=== PATIENT | male | born 1970 | race Caucasian/White ===

== ENCOUNTER → 2019-07-02 | Outpatient (CLI) | payer OTHER ==
[2019-07-02 08:12] LABS: ABSOLUTE BASOPHILS # (AUTO) 0.1 10^3/uL (0.0-0.2); ABSOLUTE EOSINOPHILS # (AUTO) 0.3 10^3/uL (0.0-0.6); ABSOLUTE LYMPHOCYTES (AUTO) 1.7 10^3/uL (0.5-4.7); ABSOLUTE MONOCYTES (AUTO) 0.6 10^3/uL (0.1-1.4); ABSOLUTE NEUT (AUTO) 3.5 10^3/uL (1.7-8.2); EOSINOPHILS % (AUTO) 4.4 % (0-6); HEMATOCRIT 47.7 % (37.9-51.0); HEMOGLOBIN 16.2 g/dL (13.5-17.0); LYMPHOCYTES % (AUTO) 28.2 % (13-45); MEAN CORPUSCULAR HEMOGLOBIN 31.5 pg (27.0-33.4); MEAN CORPUSCULAR VOLUME 93 fl (80-97); MONOCYTES % (AUTO) 9.4 % (3-13); PLATELET COUNT 333 10^3/uL (150-450); RED BLOOD COUNT 5.16 10^6/uL (4.35-5.55); RED CELL DISTRIBUTION WIDTH 14.1 % (11.5-14.0); TOTAL CELLS COUNTED % (AUTO) 100 %; WHITE BLOOD COUNT 6.2 10^3/uL (4.0-10.5)
[2019-07-02 08:32] LABS: ALBUMIN 3.9 g/dL (3.5-5.0); ALKALINE PHOSPHATASE 96 U/L (38-126); ANION GAP 7 (5-19); ASPARTATE AMINO TRANSFERASE 23 U/L (17-59); BILIRUBIN,DIRECT 0.1 mg/dL (0.0-0.4); BILIRUBIN,TOTAL 0.4 mg/dL (0.2-1.3); BLOOD UREA NITROGEN 14 mg/dL (7-20); CALCIUM 9.3 mg/dL (8.4-10.2); CARBON DIOXIDE 26 mmol/L (22-30); CHLORIDE 107 mmol/L (98-107); CHOLESTEROL 250.62 mg/dL (0-200); GLUCOSE 102 mg/dL (75-110); POTASSIUM 4.8 mmol/L (3.6-5.0); TOTAL PROTEIN 6.9 g/dL (6.3-8.2); TRIGLYCERIDES 227 mg/dL (<150); URIC ACID 4.2 mg/dL (3.5-8.5)
[2019-07-02 08:42] LABS: DIRECT LDL 191 mg/dL (<100)
[2019-07-02 08:51] LABS: VLDL CHOLESTEROL 45.4 mg/dL (10-31)
--- NOTE | 2019-07-02 09:51 | RADIOLOGY REPORT (SQ) ---
EXAM DESCRIPTION: LUMBAR SPINE 2 VIEWS COMPLETED DATE/TIME: 07/02/2019 7:50 am REASON FOR STUDY: RADICULOPATHY, LUMBAR REGION,LBP Z00.00 ENCNTR FOR GENERAL ADULT MEDICAL EXAM W/O ABNORMAL FI M54.5 LOW BACK PAIN M54.16 RADICULOPATHY, LUMBAR REGION COMPARISON: None. NUMBER OF VIEWS: Two views. TECHNIQUE: AP and lateral radiographic images acquired of the lumbar spine. LIMITATIONS: None. FINDINGS: MINERALIZATION: Normal. SEGMENTATION: Normal. No transitional anatomy. ALIGNMENT: Normal. VERTEBRAE: Maintained height. No fracture or worrisome bone lesion. DISCS: Moderate to moderate severe narrowing at L4- 5 and L5-S1. Mildly prominent anterior osteophy christi mid lower lumbar spine. Posterior osteophytes encroach on the foramina at L3-4 and L4-L5. Mild degenerative changes involving the visualized lower thoracic spine. POSTERIOR ELEMENTS: Moderate facet arthrosis lower lumbar spine more so on the right. Pedicles are intact. No pars defect or posterior arch defects. HARDWARE: None in the spine. PARASPINAL SOFT TISSUES: Normal. PELVIS: Intact as visualized. No fractures or worrisome bone lesions. SI joints intact. OTHER: No other significant finding. IMPRESSION: 1. Degenerative lumbar spondylosis and disc disease lower lumbar spine as above. 2. No acute osseous findings. TECHNICAL DOCUMENTATION: JOB ID: [id number] [employer]- All Rights Reserved Reading location - IP/workstation name: [email or web address]
--- NOTE | 2019-07-02 09:54 | RADIOLOGY REPORT (SQ) ---
EXAM DESCRIPTION: SACRUM AND COCCYX COMPLETED DATE/TIME: 07/02/2019 7:50 am REASON FOR STUDY: RADICULOPATHY, LUMBAR REGION,LBP Z00.00 ENCNTR FOR GENERAL ADULT MEDICAL EXAM W/O ABNORMAL FI M54.5 LOW BACK PAIN M54.16 RADICULOPATHY, LUMBAR REGION COMPARISON: None. NUMBER OF VIEWS: Three views. TECHNIQUE: AP, lateral, and tilt views of the sacrum and coccyx. LIMITATIONS: None. FINDINGS: MINERALIZATION: Normal. BONES: No acute fracture or dislocation. No worrisome bone lesions. SOFT TISSUES: No soft tissue swelling. No foreign body. OTHER: No other significant finding. IMPRESSION: 1. No acute osseous findings. TECHNICAL DOCUMENTATION: JOB ID: [id number] [employer]- All Rights Reserved Reading location - IP/workstation name: [email or web address]
== END ==
LOC: CCC 07:17
DX: Z00.00 Encounter for general adult medical examination without abnormal findings (principal); M54.5 Low back pain; M54.16 Radiculopathy, lumbar region
CPT/HCPCS: 36415; 72100; 72220; 80053; 80061; 83036; 84443; 84550; 85025

== ENCOUNTER → 2019-07-31 | Outpatient (CLI) | payer OTHER ==
--- NOTE | 2019-07-31 12:05 | RADIOLOGY REPORT (SQ) ---
EXAM DESCRIPTION: HAND LEFT 3 VIEWS COMPLETED DATE/TIME: 07/31/2019 11:38 am REASON FOR STUDY: NUMBNESS AND PAIN IN BOTH HANDS M79.642 PAIN IN LEFT HAND M79.641 PAIN IN RIGHT HAND M79.2 NEURALGIA AND NEURITIS, UNSPECIFIED COMPARISON: None. EXAM PARAMETERS: NUMBER OF VIEWS: Three views. TECHNIQUE: AP, lateral and oblique radiographic images acquired of the left hand. LIMITATIONS: None. FINDINGS: MINERALIZATION: Normal. BONES: No acute fracture or dislocation. No worrisome bone lesions. No significant osteophytes. JOINTS: No erosions. No karis-articular osteopenia. No chondrocalcinosis. SOFT TISSUES: No swelling. No calcifications. OTHER: No other significant finding. IMPRESSION: NEGATIVE STUDY OF THE LEFT HAND. NO EXPLANATION FOR PAIN. TECHNICAL DOCUMENTATION: JOB ID: [id number] [employer]- All Rights Reserved Reading location - IP/workstation name: [email or web address]
--- NOTE | 2019-07-31 12:05 | RADIOLOGY REPORT (SQ) ---
EXAM DESCRIPTION: HAND RIGHT 3 VIEWS COMPLETED DATE/TIME: 07/31/2019 11:38 am REASON FOR STUDY: NUMBNESS AND PAIN IN BOTH HANDS M79.642 PAIN IN LEFT HAND M79.641 PAIN IN RIGHT HAND M79.2 NEURALGIA AND NEURITIS, UNSPECIFIED COMPARISON: None. EXAM PARAMETERS: NUMBER OF VIEWS: Three views. TECHNIQUE: AP, lateral and oblique radiographic images acquired of the right hand. LIMITATIONS: None. FINDINGS: MINERALIZATION: Normal. BONES: No acute fracture or dislocation. No worrisome bone lesions. JOINTS: No effusions. SOFT TISSUES: No soft tissue swelling. No foreign body. OTHER: No other significant finding. IMPRESSION: NEGATIVE STUDY OF THE RIGHT HAND. NO RADIOGRAPHIC EVIDENCE OF ACUTE INJURY. TECHNICAL DOCUMENTATION: JOB ID: [id number] [employer]- All Rights Reserved Reading location - IP/workstation name: [email or web address]
== END ==
LOC: CCC 11:23
DX: M79.642 Pain in left hand (principal); M79.641 Pain in right hand; M79.2 Neuralgia and neuritis, unspecified

== ENCOUNTER → 2019-10-02 | Outpatient (CLI) | payer OTHER ==
--- NOTE | 2019-10-03 08:58 | RADIOLOGY REPORT (SQ) ---
EXAM DESCRIPTION: MRI CERVICAL SPINE WITHOUT COMPLETED DATE/TIME: 10/02/2019 11:27 am REASON FOR STUDY: UNSPEC DISPLACED FX OF 2ND CERVICAL VERTEBRA (S12.100A), CERVICAL RADICULOP S12.10 0A UNSP DISP FX OF SECOND CERVICAL VERTEBRA, INIT FOR COMPARISON: None. TECHNIQUE: Sagittal and Axial imaging includes T1, T2, STIR and gradient echo sequences. LIMITATIONS: None. FINDINGS: ALIGNMENT: Normal. VERTEBRAE: Intact. BONE MARROW: Normal. No marrow replacement or reactive changes. DISCS: Normal. No significant abnormal signal or loss of height. HARDWARE: Hardware extends from C4 through C7. CORD AND BASE OF BRAIN: Normal in size and signal intensity. SOFT TISSUES: No soft tissue masses. C1-C2: No significant spinal stenosis. C2-C3: No significant spinal stenosis or exit foraminal stenosis. C3-C4: There is annular disc bulging. No significant central stenosis. There are prominent disc- os teophyte complexes latter resulting in bilateral foraminal stenosis. C4-C5: Postsurgical changes. Mild asymmetric narrowing of the right neural foramina. No central klaus nosis. C5-C6: Postsurgical changes with effacement anterior thecal sac. No significant foraminal narrowing. C6-C7: Prominent left lateral disc/ osteophyte complex. This results in asymmetric narrowing of the left neural foramina. Mild central stenosis at this level. There is loss of signal due to postsurgi lexie changes. C7-T1: Central osteophyte. No foraminal narrowing or high-grade stenosis. UPPER THORACIC: Incompletely imaged. No significant spinal stenosis or exit foraminal stenosis. OTHER: No other significant finding. IMPRESSION: 1. Postsurgical changes prior anterior fusion from C4 through C7. 2. At C6-C7 there is a prominent left lateral disc/ osteophyte complex. This results in asymmetric narrowing of the left neural foramina. There is mild central stenosis at this level as well. 3. Annular disc bulging at C3-4 with prominent lateral osteophytes results in bilateral foraminal st enosis. 4. Mild asymmetric narrowing of the right neural foramina at C4-5 secondary to hyperostosis. TECHNICAL DOCUMENTATION: JOB ID: [id number] 2010 [employer]- All Rights Reserved Reading location - IP/workstation name: [email or web address]
== END ==
LOC: RAD 10:32
PROVIDERS: ATTEND Family Medicine
DX: S12.100A Unspecified displaced fracture of second cervical vertebra, initial encounter for closed fracture (principal); M54.12 Radiculopathy, cervical region; X58.XXXA Exposure to other specified factors, initial encounter
CPT/HCPCS: 72141

== ENCOUNTER 2020-01-24 21:31 | Emergency (ER) | payer OTHER ==
[2020-01-24 21:38] VITALS: BP 178/122
[2020-01-24] MEDS ORDERED: METHYLPREDNISOLONE ACETATE INJ 40 MG/1 ML ML IM ONE (21:50)
[2020-01-24] MEDS ORDERED: DEXAMETHASONE SOD PHOS INJ 10 MG/1 ML VIAL IM ONE (21:50)
[2020-01-24] MEDS ORDERED: METHOCARBAMOL 750 MG TABLET PO ONE (21:51)
--- NOTE | 2020-01-24 21:56 | ER Document Report ---
HPI - HPI Patient complains to provider of: Back pain Time Seen by Provider: 01/24/20 21:50 Onset: Last week - This a 49-year-old male whose had intermittent back pain to the left lateral part of his back intermittently for about 3 months more severe over the last 2 days. He has not had any recent injury no fall no trauma. Onset/Duration: Intermittent Pain Level: 4 Associated Symptoms: None Exacerbated by: Denies Relieved by: Denies Similar symptoms previously: Yes Recently seen / treated by doctor: No Past Medical History - General Information source: Patient - Social History Smoking Status: Current Every Day Smoker Cigarette use (# per day): Yes - 20 Chew tobacco use (# tins/day): No Smoking Education Provided: No Frequency of alcohol use: None Drug Abuse: None Family History: None Patient has homicidal ideation: No Vertical Provider Document - CONSTITUTIONAL Agree With Documented VS: Yes - INFECTION CONTROL TRAVEL OUTSIDE OF THE [place] IN LAST 30 DAYS: No - HEENT HEENT: Atraumatic, Conjuctival Injection, Normocephalic, PERRLA - NECK Neck: Normal Inspection, Supple - RESPIRATORY Respiratory: Breath Sounds Normal, No Respiratory Distress - CARDIOVASCULAR Cardiovascular: Regular Rate, Regular Rhythm - REPRODUCTIVE Male Genitalia: Normal Inspection - BACK Back: Normal Inspection Notes: No numbness no tingling no loss of bowel bladder function no saddle anesthesia ambulatory with a rhythmic and purposeful gait. - MUSCULOSKELETAL/EXTREMETIES Musculoskeletal/Extremeties: [facility] Course - Re-evaluation Re-evalutation: 01/24/20 21:53 No numbness no tingling no loss of bowel bladder function no saddle anesthesia ambulatory with a rhythmic and purposeful gait. No trauma patient states this is been happening intermittently over the last several months has a history of sciatica. - Vital Signs Vital signs: Temp Pulse Resp BP Pulse Ox 97.5 F 93 22 H 178/122 H 97 01/24/20 21:42 01/24/20 21:35 01/24/20 21:35 01/24/20 21:35 01/24/20 21:35 Discharge - Discharge Clinical Impression: Sciatica Qualifiers: Laterality: left Qualified Code(s): M54.32 - Sciatica, left side Disposition: HOME, SELF-CARE Instructions: Sciatica ([facility]) Additional Instructions: Sciatica Your symptoms suggest "sciatica." The pain of sciatica typically radiates down the leg. Numbness in the foot or calf may also occur. Sciatica is caused by irritation of the sciatic nerve or its branches. The irritation can be due to a herniated disk in the spine, swelling and inflammation in the muscles surrounding the sciatic nerve, or direct injury of the nerve itself. Most cases of sciatica will resolve with medical treatment. Bed rest is usually recommended initially. Surgery is only necessary when the condition will not improve with rest and antiinflammatory medication. Muscle relaxers are often given if muscle soreness is present. A CAT scan of the back may be performed if a herniated disk is suspected. Re-examination is necessary if you develop increasing numbness, localized weakness in the foot or ankle, or if the pain does not respond to rest. Prescriptions: Prednisone [Deltasone 20 mg Tablet] 3 tab PO DAILY 5 Days tablet Methocarbamol [Robaxin 750 mg Tablet] 750 mg PO ASDIR PRN #40 tablet PRN Reason: Referrals: ALINA GONSALVES MD [Primary Care Provider] - Follow up as needed
== END 2020-01-24 22:16 | disposition home or self-care (01) ==
LOC: ER 21:31
DX: M54.32 Sciatica, left side (principal); M54.9 Dorsalgia, unspecified; F17.210 Nicotine dependence, cigarettes, uncomplicated
CPT/HCPCS: 99283; 96372; J3490; J1030; J1100

== ENCOUNTER 2020-01-28 17:57 | Emergency (ER) | payer OTHER ==
--- NOTE | 2020-01-28 18:54 | ER Document Report ---
ED Medical Screen (RME) - General Chief Complaint: Back Pain Stated Complaint: LEFT SIDE BACK/LEG PAIN Time Seen by Provider: 01/28/20 18:41 Primary Care Provider: ALINA GONSALVES MD [Primary Care Provider] - Follow up as needed Mode of Arrival: Ambulatory Information source: Patient Notes: 49-year-old male presented to ED for sciatica pain that is become worse since he was seen here on . He states he followed up with his primary care doctor and they wanted to know why he did get an x-ray or an MRI. He states he then followed up with pain management who told him that he should return to the ED to see if he could get his MRI. They said they would work on trying to get once set up. He states he had low back pain for few months but the sciatica was just diagnosed on . He does have a history of chronic pain in his neck upper back and right shoulder. He has had a cervical fusion carpal tunnel surgery torn ligament repair in his elbow and her shoulder surgery. He states he does smoke a pack and a half a day. He is alert oriented respirations regular nonlabored he is in pain and walking with a stiff leg on his left side. He states he does not have any loss control of bowel bladder, saddle anesthesia, loss of control to the lower extremities. He states it is very painful to the left leg. I have greeted and performed a rapid initial assessment of this patient. A comprehensive ED assessment and evaluation of the patient, analysis of test results and completion of medical decision making process will be conducted by an additional ED providers. - Related Data Allergies/Adverse Reactions: No Known Allergies Allergy (Unverified 01/24/20 21:41) Past Medical History - Social History Frequency of alcohol use: None Drug Abuse: None Physical Exam - Vital signs Vitals: Temp Pulse Resp BP Pulse Ox 98.6 F 94 20 185/107 H 96 01/28/20 18:05 01/28/20 18:05 01/28/20 18:05 01/28/20 18:05 01/28/20 18:05 Course - Vital Signs Vital signs: Temp Pulse Resp BP Pulse Ox 98.6 F 94 20 185/107 H 96 01/28/20 18:41 01/28/20 18:05 01/28/20 18:05 01/28/20 18:05 01/28/20 18:05 Doctor's Discharge - Discharge Referrals: ALINA GONSALVES MD [Primary Care Provider] - Follow up as needed
--- NOTE | 2020-01-28 19:23 | RADIOLOGY REPORT (SQ) ---
EXAM DESCRIPTION: L SPINE WHOLE IMAGES COMPLETED DATE/TIME: 01/28/2020 7:10 pm REASON FOR STUDY: Low back pain sciatica to the left COMPARISON: 07/02/2019 NUMBER OF VIEWS: Five views including obliques. TECHNIQUE: AP, lateral, oblique, and sacral radiographic images acquired of the lumbar spine. LIMITATIONS: None. FINDINGS: MINERALIZATION: Normal. SEGMENTATION: Normal. No transitional anatomy. ALIGNMENT: Normal. VERTEBRAE: Maintained height. No fracture or worrisome bone lesion. DISCS: Multilevel disc space narrowing, more so at L4-5 and L5-S1, unchanged finding. Mildly promin ent anterior osteophytes mid-lower lumbar spine. Small posterior osteophytes encroach on the foramin a at L3-4 L4-5 and L5-S1. POSTERIOR ELEMENTS: Facet arthrosis lower lumbar spine, more so on the right. Pedicles are intact. No pars defect or posterior arch defects. HARDWARE: None in the spine. PARASPINAL SOFT TISSUES: Normal. PELVIS: Intact as visualized. No fractures or worrisome bone lesions. SI joints intact. OTHER: No other significant finding. IMPRESSION: 1. No significant interval changes since the prior examination dated 07/02/2019. Degen erative lumbar disc spondylosis and disc disease lower lumbar spine. 2. No acute osseous findings. TECHNICAL DOCUMENTATION: JOB ID: [id number] 2010 [employer]- All Rights Reserved Reading location - IP/workstation name: [email or web address]
[2020-01-28 19:25] LABS: HEMATOCRIT 44.9 % (37.9-51.0); HEMOGLOBIN 15.1 g/dL (13.5-17.0); MEAN CORPUSCULAR HEMOGLOBIN 31.2 pg (27.0-33.4); MEAN CORPUSCULAR HGB CONC 33.5 g/dL (32.0-36.0); MEAN CORPUSCULAR VOLUME 93 fl (80-97); PLATELET COUNT 362 10^3/uL (150-450); RED BLOOD COUNT 4.84 10^6/uL (4.35-5.55); WHITE BLOOD COUNT 18.4 10^3/uL (4.0-10.5)
[2020-01-28 19:32] LABS: ALBUMIN 4.5 g/dL (3.5-5.0); ALKALINE PHOSPHATASE 76 U/L (38-126); APPEARANCE,URINE SLIGHTLY-CLOUDY; ASPARTATE AMINO TRANSFERASE 31 U/L (17-59); BILIRUBIN,DIRECT 0.1 mg/dL (0.0-0.4); BILIRUBIN,TOTAL 0.4 mg/dL (0.2-1.3); BILIRUBIN,URINE SMALL (NEGATIVE); BLOOD UREA NITROGEN 27 mg/dL (7-20); CALCIUM 9.6 mg/dL (8.4-10.2); COLOR,URINE AMBER; GLUCOSE 112 mg/dL (75-110); GLUCOSE, URINE NEGATIVE (NEGATIVE); KETONES,URINE TRACE mg/dL (NEGATIVE); LEUKOCYTE ESTERASE,URINE NEGATIVE (NEGATIVE); NITRITE,URINE NEGATIVE (NEGATIVE); PROTEIN,URINE 30 mg/dL (NEGATIVE); TOTAL PROTEIN 7.5 g/dL (6.3-8.2); URINE SPECIFIC GRAVITY 1.038
[2020-01-28 19:38] LABS: CARBON DIOXIDE 27 mmol/L (22-30); CHLORIDE 105 mmol/L (98-107)
[2020-01-28 19:41] LABS: ANION GAP 4 (5-19)
[2020-01-28 19:55] LABS: ABSOLUTE LYMPHOCYTES# (MANUAL) 4.4 10^3/uL (0.5-4.7); ABSOLUTE MONOCYTES # (MANUAL) 1.5 10^3/uL (0.1-1.4); BASOPHILS % (MANUAL) 0 % (0-2); EOSINOPHILS % (MANUAL) 0 % (0-6); LYMPHOCYTES % (MANUAL) 23 % (13-45); METAMYELOCYTES % (MANUAL) 2 % (0-1); MONOCYTES % (MANUAL) 8 % (3-13); SEGMENTED NEUTROPHILS % (MAN) 66 % (42-78); TOTAL CELLS COUNTED 100
[2020-01-28 19:56] LABS: ANISOCYTOSIS SLIGHT; OVALOCYTES SLIGHT; PLATELET COMMENT ADEQUATE; POIKILOCYTOSIS SLIGHT
[2020-01-28] MEDS ORDERED: HYDROCODONE/ACETAMINOPHEN 5-325 MG TABLET PO ONE (20:22)
[2020-01-28] MEDS ORDERED: HYDROMORPHONE HCL INJ/PF 2 MG/ML AMPULE IM ONE (21:22)
[2020-01-28] MEDS ORDERED: IBUPROFEN 600 MG TABLET PO ONE (21:22)
[2020-01-28] MEDS ORDERED: CYCLOBENZAPRINE HCL 10 MG TABLET PO ONE (21:22)
--- NOTE | 2020-01-28 21:25 | ER Document Report ---
ED General - General Chief Complaint: Back Pain Stated Complaint: LEFT SIDE BACK/LEG PAIN Time Seen by Provider: 01/28/20 18:41 Primary Care Provider: ALINA GONSALVES MD [Primary Care Provider] - Follow up as needed Mode of Arrival: Ambulatory Notes: 49-year-old male with a history of chronic pain multiple neck surgeries and known spine arthritis, on pain management contract with a pain management clinic presents with back pain left-sided lower rating down the left buttock no lower with left leg paresthesias in his small and middle toe on the left. No loss of bowel or bladder control no saddle anesthesia no injection drug use. Injected testosterone with clean needles and alcohol last 7 months ago previously was on testosterone therapy but denies illicit drug use. He has no rash no history of shingles, no weight loss and no fever. - Related Data Allergies/Adverse Reactions: No Known Allergies Allergy (Unverified 01/24/20 21:41) Past Medical History - General Information source: Patient - Social History Smoking Status: Current Every Day Smoker Frequency of alcohol use: None Drug Abuse: None Family History: None Patient has homicidal ideation: No Review of Systems - Review of Systems Notes: REVIEW OF SYSTEMS GEN: Denies fever, chills, weight loss ENT: Denies sore throat, nasal discharge, ear pain EYES: Denies blurry vision, eye pain, discharge CV: Denies chest pain, palpitations, edema RESP: Denies cough, shortness of breath, wheezing GI: Denies abdominal pain, nausea, vomiting, diarrhea MSK: Back pain SKIN: Denies rash, skin lesions LYMPH: Denies swollen glands/lymph nodes NEURO: Denies headache, focal weakness or numbness, dizziness PSYCH: Denies depression, suicidal or homicidal ideation PHYSICAL EXAMINATION General: No acute distress, well-nourished Head: Atraumatic, normocephalic ENT: Mouth normal, oropharynx moist, no exudates or tonsillar enlargement Eyes: Conjunctiva normal, pupils equal, lids normal Neck: No JVD, supple, no guarding CVS: Normal rate, regular rhythm, no murmurs Resp: No resp distress, equal and normal breath sounds bilaterally GI: Nondistended, soft, no tenderness to palpation, no rebound or guarding Ext: No deformities, no edema, normal range of motion in upper and lower ext Back: No CVA or midline TTP. Left lumbar tenderness and spasm. Skin: No rash, warm Lymphatic: No lymphadeopathy noted Neuro: Awake, alert. Face symmetric. GCS 15. 5 and 5 strength in both lower extremities normal sensation throughout except mild paresthesia on the left side of the left foot, normal patellar and Achilles reflexes bilaterally. Patient able to stand and walk although antalgic. Physical Exam - Vital signs Vitals: Temp Pulse Resp BP Pulse Ox 98.6 F 94 20 185/107 H 96 01/28/20 18:05 01/28/20 18:05 01/28/20 18:05 01/28/20 18:05 01/28/20 18:05 Course - Re-evaluation Re-evalutation: 01/28/20 21:23 Acute on chronic back pain with no risk factors for spinal epidural abscess. The patient has normal neurologic exam with no clinical history consistent with cauda equina, has had an x-ray showing some degenerative change, and does not require MRI at this time. I will give him a dose of Dilaudid and Flexeril with ibuprofen for radiculopathy, and will discharge him on a steroid pack. For some reason he obtained labs at triage he does have a mild white count, however I do not think that this alone mandates MRI. He has some nonspecific abnormal urine testing but no evidence of kidney stone, and his blood tests otherwise are normal. 01/29/20 00:46 Patient received pain medicine. [place] better. Ambulated from ED. Discharged follow-up with pain management. I have discussed with the patient there likely diagnosis, aftercare plan, follow-up plans and my usual and customary return precautions. They verbalized understanding of this. - Vital Signs Vital signs: Temp Pulse Resp BP Pulse Ox 97.5 F 80 18 170/103 H 96 01/28/20 21:36 01/28/20 21:36 01/28/20 21:36 01/28/20 21:36 01/28/20 21:36 - Laboratory Result Diagrams: 01/28/20 19:00 01/28/20 19:00 Laboratory results interpreted by me: 01/28/20 01/28/20 01/28/20 19:00 19:00 19:00 WBC 18.4 H RDW 15.0 H Metamyelocytes % 2 H Abs Neuts (Manual) 12.5 H Abs Monocytes (Manual) 1.5 H Sodium 136.0 L Anion Gap 4 L BUN 27 H Glucose 112 H Urine Protein 30 H Urine Ketones TRACE H Urine Bilirubin SMALL H Urine Urobilinogen 2.0 H Urine Ascorbic Acid 20 H Discharge - Discharge Clinical Impression: Acute exacerbation of chronic low back pain Condition: Good Disposition: HOME, SELF-CARE Instructions: Ice Packs ([facility]), Low Back Pain ([facility]), Oral Narcotic Medication ([facility]), Warm Packs ([facility]) Additional Instructions: Though you may need an MRI in the future is not necessary tonight in the emergency room. If you have trouble controlling your bowel or bladder, have any numbness or tingling in your scrotum or anus, or develop a fever please return to the emergency room as this may be sign of a more serious condition. Until then please follow-up with your pain management office and you can, purchase some cech-hga-xwkswfu lidocaine patches, begin the steroids that I have prescribed, and discussed with pain management regarding increasing or changing your baseline pain medicine dosing. Prescriptions: Methylprednisolone [Medrol Dosepack (4 mg/Tab) 21 Tab/Dosepak] 4 mg PO ASDIR PRN #21 tab.ds.pk PRN Reason: Referrals: ALINA GONSALVES MD [Primary Care Provider] - Follow up as needed
[2020-01-28 21:39] VITALS: BP 170/103
== END 2020-01-28 21:58 | disposition home or self-care (01) ==
LOC: ER 17:57
DX: M54.5 Low back pain (principal); M54.9 Dorsalgia, unspecified; R20.0 Anesthesia of skin; F17.200 Nicotine dependence, unspecified, uncomplicated; G89.29 Other chronic pain
CPT/HCPCS: 99283; 96372; 36415; 85025; 80053; 81001; 72110; J1170

== ENCOUNTER → 2020-02-01 | Outpatient (CLI) | payer OTHER ==
--- NOTE | 2020-02-01 14:05 | RADIOLOGY REPORT (SQ) ---
EXAM DESCRIPTION: MRI LUMBAR SPINE WITHOUT IMAGES COMPLETED DATE/TIME: 02/01/2020 11:53 am REASON FOR STUDY: LUMBAR RADICULOPATHY (M54.16) M54.16 RADICULOPATHY, LUMBAR REGION COMPARISON: AP, lateral and oblique views of the lumbar spine from 01/28/2020. TECHNIQUE: Sagittal and Axial imaging includes T1, T2, STIR and gradient echo sequences. Coronal T2/ HASTE imaging. LIMITATIONS: None. FINDINGS: VISUALIZED UPPER ABDOMEN: Limited evaluation. No acute or suspicious findings suggested. SEGMENTATION: There are 5 lumbar-type vertebral bodies. There is no transitional segment at the lumb osacral junction. ALIGNMENT: Anatomic. VERTEBRAE: The lumbar vertebral body heights are preserved. There is no fracture. BONE MARROW: Normal. DISC SIGNAL: The L3-L4, L4-L5 and L5-S1 intervertebral discs are narrowed and desiccated. POSTERIOR ELEMENTS: Intact. HARDWARE: None in the spine. CORD AND CONUS: The conus medullaris terminates at the level of T12-L1 and it is normal in caliber an d signal intensity. SOFT TISSUES: No abdominal aortic aneurysm or retroperitoneal adenopathy. L1-L2: No spinal or foraminal stenosis. L2-L3: No spinal or foraminal stenosis. L3-L4: Broad-based disc bulge eccentric to the left that effaces the ventral epidural fat without mas s effect on the thecal sac, encroaches upon the inferior aspect of the neuroforamina, and abuts the e xtraforaminal left L3 nerve root ; and degeneration of the facet joints. These findings result in mi ld bilateral foraminal stenosis. L4-L5: Broad-based disc protrusion that flattens the ventral aspect of the thecal sac and encroaches upon the inferior aspect of the neuroforamina without mass effect on the L4 nerve roots ; hypertrophy of the ligamentum flavum ; and degeneration of the facet joints. These findings result in mild to m oderate stenosis of the spinal canal and mild to moderate bilateral foraminal stenosis L5-S1: Disc extrusion eccentric to the left that abuts the intrathecal left S1 nerve root (in the lat eral recess) ; and degeneration of the facet joints. These findings result in mild to moderate bilat eral foraminal stenosis. LOWER THORACIC: At T11-T12 there is a right paramedian disc protrusion with an annular tear and a asy mmetric hypertrophy of the ligamentum flavum that exert mild local mass effect on the thecal sac. SACRUM: Intact. OTHER: No other findings. IMPRESSION: Degenerative spondylosis and facet arthropathy of the lumbar spine as detailed above. TECHNICAL DOCUMENTATION: JOB ID: [id number] 2010 [employer]- All Rights Reserved Reading location - IP/workstation name: [email or web address]
== END ==
LOC: RAD 10:43
PROVIDERS: ATTEND Family Medicine
DX: M51.15 Intervertebral disc disorders with radiculopathy, thoracolumbar region (principal); M47.896 Other spondylosis, lumbar region
CPT/HCPCS: 72148

== ENCOUNTER 2020-03-04 09:25 | Emergency (ER) | payer OTHER ==
[2020-03-04] MEDS ORDERED: LIDOCAINE 1% INJ-PF (10 MG/ML) 30 ML SDV ONE (10:10)
[2020-03-04] MEDS ORDERED: LIDOCAINE 1% INJ-PF (10 MG/ML) 30 ML SDV INJ ONE (10:16)
--- NOTE | 2020-03-04 10:20 | ER Document Report ---
ED Skin Rash/Insect Bite/Abscs - General Chief Complaint: Abscess Stated Complaint: HEADACHE,NAUSEA,FEVER Time Seen by Provider: 03/04/20 09:47 Primary Care Provider: ALINA GONSALVES MD [Primary Care Provider] - Follow up as needed Notes: Patient is a 49-year-old male who presents to the emergency department with a chief complaint of a possible abscess to his left mid back. Patient states that he had a telehealth call and was placed on antibiotics. Patient states that he noticed it 3 days ago. His girlfriend and trying to express pus, but nothing came out. Patient denies any headache, chills, but has a fever here in the emergency department. Denies any history of IV drug use. - Related Data Allergies/Adverse Reactions: No Known Allergies Allergy (Verified 03/04/20 10:05) Past Medical History - General Information source: Patient - Social History Smoking Status: Current Every Day Smoker Family History: None Review of Systems - Review of Systems Notes: REVIEW OF SYSTEMS: CONSTITUTIONAL : See HPI. EENT: Denies eye, ear, throat, or mouth pain, discharge, or symptoms. Denies nasal or sinus congestion. CARDIOVASCULAR: Denies chest pain. RESPIRATORY: Denies shortness of breath, cough, congestion, difficulty breathing, or wheezing. GASTROINTESTINAL: Denies nausea, vomiting, and diarrhea. Denies abdominal pain. Denies constipation. GENITOURINARY: Denies difficulty urinating, burning, blood in urine, urgency or frequency. MUSCULOSKELETAL: See HPI. Denies joint pain or swelling. SKIN: See HPI. HEMATOLOGIC : Denies easy bruising or bleeding. LYMPHATIC: Denies swollen, painful, enlarged glands. NEUROLOGICAL: Denies no numbness or tingling denies weakness. Denies headache. Denies altered mental status. Denies alteration in speech. PSYCHIATRIC: Denies stress, anxiety, alteration in sleep patterns, or depression. All other systems reviewed and negative. Physical Exam - Vital signs Vitals: Temp Pulse Resp BP Pulse Ox 100.1 F 118 H 16 136/90 H 98 03/04/20 09:48 03/04/20 09:48 03/04/20 09:48 03/04/20 09:48 03/04/20 09:48 - Notes Notes: PHYSICAL EXAMINATION: GENERAL: Appears well, healthy, well-nourished, no acute distress. HEAD: Normocephalic, atraumatic. EYES: PERRL, conjunctiva normal, all extraocular movements intact, sclera nonicteric ENT: Moist mucous membranes. NECK: Supple, no noticeable swelling, redness, rash. Normal range of motion. LUNGS: Equal breath sounds bilaterally and clear to auscultation. No wheezes rales or rhonchi. CARDIOVASCULAR: S1-S2, regular rate, regular rhythm. Radial pulses 2+, normal. ABDOMEN: Normoactive bowel sounds. Soft, nontender, no guarding, no rebound tenderness, and no masses palpated. EXTREMITIES: Normal strength and range of motion, no pitting or edema. No cyanosis. NEUROLOGICAL: Moves all extremities upon command. Strength 5/5 in all extremities. PSYCH: Normal mood, normal affect. SKIN: Warm, dry. Erythematous area noted to left lateral back. Pocket noted on ultrasound. Course - Re-evaluation Re-evalutation: 03/04/20 11:26 Differential diagnosis includes but normal limited to: abscess, dermoid cyst, sebaceous cyst, furnucle, or others. Based on patient's physical exam and history, this is an abscess. It was drained in the ER. There is surrounding cellulitis. Patient will continue Keflex. I do not believe the patient has underlying necrotizing fasciitis. Based on patient's physical exam and these factors, they will be given Bactrim. Patient is to follow-up here in the emergency department in 2 days to have his wound rechecked. His primary care provider is not seeing patients in the office. Follow-up precautions were given. Verbal discharge instructions were given to the patient. They verbalized understanding. They are stable for discharge. - Vital Signs Vital signs: Temp Pulse Resp BP Pulse Ox 100.0 F 117 H 16 169/81 H 99 03/04/20 12:12 03/04/20 12:12 03/04/20 09:48 03/04/20 12:12 03/04/20 12:12 Procedures - Incision and Drainage Left Back Type: Single Anesthetic type: 1% Lidocaine mL's of anesthetic: 10 Blade size: 11 I&D procedure: Betadine prep applied, Shurclens applied, Iodoform packing placed Incision Method: Incision made with needle Amount/type of drainage: 50 mL/purulent and blood Adult Front & Back picture: 1 - Large abscess noted Discharge - Discharge Clinical Impression: Abscess Condition: Stable Disposition: HOME, SELF-CARE Instructions: Abscess ([facility]), Post Incision and Drainage, Trimethoprim-Sulfa ([facility]) Additional Instructions: You were seen for an abscess that required drainage. Have your girlfriend pushed on the area to help express any extra pus that may help collected. Dress the area after each cleaning. Return in 2 days to have your abscess rechecked in your packing taken out. Please return if you develop fever, vomiting, the pain at the site worsens, you notice spreading redness from the area, or you have any other symptoms that are concerning to you. Prescriptions: Sulfamethoxazole/Trimethoprim [Bactrim Ds Tablet] 1 each PO BID 7 Days #14 tablet Referrals: ALINA GONSALVES MD [Primary Care Provider] - Follow up as needed
[2020-03-04] MEDS ORDERED: HYDROMORPHONE HCL INJ/PF 2 MG/ML AMPULE IM ONE ×2 (11:09→11:51)
[2020-03-04 12:19] VITALS: BP 169/81
== END 2020-03-04 12:18 | disposition home or self-care (01) ==
LOC: ER 09:25
PROC: 0H96XZZ Drainage of Back Skin, External Approach (ICD-10-PCS; principal; 2020-03-04)
DX: L02.212 Cutaneous abscess of back [any part, except buttock and flank] (principal); R50.9 Fever, unspecified; R51 Headache; R11.0 Nausea; F17.200 Nicotine dependence, unspecified, uncomplicated
CPT/HCPCS: 99283; 96372; 87070; 87205; 87075; 87077; 10060; J1170; 87186

== ENCOUNTER 2020-03-06 08:14 | Emergency (ER) | payer OTHER ==
--- NOTE | 2020-03-06 10:31 | ER Document Report ---
ED Suture/Wound Recheck - General Chief Complaint: Wound Recheck Stated Complaint: WOUND RECHECK Time Seen by Provider: 03/06/20 10:27 Primary Care Provider: ALINA GONSALVES MD [Primary Care Provider] - Follow up as needed Mode of Arrival: Ambulatory Information source: Patient Notes: Patient is a 49-year-old male who presents to the emergency department with a ch recheck of abscess that was I&D to on Tuesday. Dates he is still having a lot of drainage and the packing will not stay and so he returned to the ED. I have explained to him he does not need to pack the wound anymore he should use the Epson salt irrigations as I have given to him and complete his antibiotics. Patient verbalized understanding and agreement with treatment plan and patient was discharged home. - HPI Previous ED treatment: I&D of abscess Quality of pain: No pain Severity: Mild Pain Level: 2 Symptoms since procedure: Drainage, Pain Exacerbated by: Movement Relieved by: Denies - Related Data Allergies/Adverse Reactions: No Known Allergies Allergy (Verified 03/04/20 10:05) Past Medical History - General Information source: Patient - Social History Smoking Status: Current Every Day Smoker Chew tobacco use (# tins/day): No Frequency of alcohol use: None Drug Abuse: None Family History: None Patient has suicidal ideation: No - Past Medical History Cardiac Medical History: Reports: Hx Hypertension Pulmonary Medical History: Reports: None EENT Medical History: Reports: None Neurological Medical History: Reports: None Endocrine Medical History: Reports: None Renal/ Medical History: Reports: None Malignancy Medical History: Reports None GI Medical History: Reports: None Musculoskeletal Medical History: Reports Hx Musculoskeletal Deformity, Reports Hx Musculoskeletal Trauma Skin Medical History: Reports None Psychiatric Medical History: Reports: None Traumatic Medical History: Reports: None Infectious Medical History: Reports: None Past Surgical History: Reports: Hx Orthopedic Surgery - shoulder & neck fusion - Immunizations Immunizations up to date: Yes Review of Systems - Review of Systems Constitutional: No symptoms reported EENT: No symptoms reported Cardiovascular: No symptoms reported Respiratory: No symptoms reported Gastrointestinal: No symptoms reported Genitourinary: No symptoms reported Male Genitourinary: No symptoms reported Musculoskeletal: Back pain - Recheck abscess pain to the abscess Skin: Other - Abscess to the back recheck draining looking better no swelling no redness Hematologic/Lymphatic: No symptoms reported Neurological/Psychological: No symptoms reported Physical Exam - Vital signs Vitals: Temp Pulse Resp BP Pulse Ox 98.7 F 80 17 136/86 H 97 03/06/20 08:32 03/06/20 08:32 03/06/20 08:32 03/06/20 08:32 03/06/20 08:32 Interpretation: Normal - General General appearance: Appears well, Alert - HEENT Head: Normocephalic, Atraumatic Eyes: Normal Pupils: PERRL - Respiratory Respiratory status: No respiratory distress Chest status: Nontender Breath sounds: Normal Chest palpation: Normal - Cardiovascular Rhythm: Regular Heart sounds: Normal auscultation Murmur: No - Abdominal Inspection: Normal Distension: No distension Bowel sounds: Normal Tenderness: Nontender Organomegaly: No organomegaly - Back Back: Normal, Nontender - Extremities General upper extremity: Normal inspection, Nontender, Normal color, Normal ROM, Normal temperature General lower extremity: Normal inspection, Nontender, Normal color, Normal ROM, Normal temperature, Normal weight bearing. No: Kong's sign - Neurological Neuro grossly intact: Yes Cognition: Normal Orientation: AAOx4 Cuervo Coma Scale Eye Opening: Spontaneous Bree Coma Scale Verbal: Oriented Bree Coma Scale Motor: Obeys Commands Bree Coma Scale Total: 15 Speech: Normal Motor strength normal: LUE, RUE, LLE, RLE Sensory: Normal - Psychological Associated symptoms: Normal affect, Normal mood - Skin Skin Temperature: Warm Skin Moisture: Dry Skin Color: Normal Location of irregularity: Back - Upper back draining well no signs or symptoms of increased infection it is draining well no redness minimal discomfort Irregularity with: Tenderness Course - Re-evaluation Re-evalutation: 03/06/20 10:34 Wound irrigated with 50 cc of saline new dressing applied patient given instructions on Epson salt patient was discharged home. - Vital Signs Vital signs: Temp Pulse Resp BP Pulse Ox 98.7 F 80 17 136/86 H 97 03/06/20 08:32 03/06/20 08:32 03/06/20 08:32 03/06/20 08:32 03/06/20 08:32 Discharge - Discharge Clinical Impression: Encounter for recheck of abscess following incision and drainage Condition: Stable Disposition: HOME, SELF-CARE Additional Instructions: ABSCESS: You have an abscess (boil). This a pus-forming infection, usually due to staph. Some boils may be left to drain on their own, but most require lancing. From the time the tender lump first appears, it may be three or four days before the abscess is ready to clay. Local heat and rest help at this stage of treatment. An antibiotic may prevent spread of the infection. Once the abscess is opened, packing may be placed into it. This is done so pus is not sealed inside by premature closure of the cavity. The packing will be removed at your follow-up visit or you may be advised to remove it yourself at home. Sometimes this packing must be replaced a few times during healing. The wound will heal with surprisingly little scar. Depending on the size and location of an abscess, healing can take one to four weeks. You may shower and wash the area around the incision site two or three times a day. Antibiotics may be prescribed, but are usually not necessary after an abscess has been drained. If you develop fever, chills, worsening pain, or increasing swelling in the area, call the doctor or return immediately. Epsom Salt Soaks Soak the wound area in a container of warm epsom salt water. If you can't get the wound area into a bucket or curtis, use a folded towel soaked in the epsom salt solution and apply to the area. Use clean hot tap water (about the temperature of a very warm bath), mixing in about one (1) teaspoon for every pint of water. Two gallon --> 16 teaspoons Epsom Salts One gallon --> 8 teaspoons Epsom Salts Two quarts --> 4 teaspoons Epsom Salts One quart --> 2 teaspoons Epsom Salts Soak the wound for about 20 minutes while gently moving it around in the water. Repeat this four (4) times a day. Continue your antibiotics as prescribed. And do the Epson salt soaks for about 10 days or until wound is healed. As I have explained to you put the 5 pads in the water apply 1 until it cools in the next the next ~involvement used. FOLLOW-UP CARE: Most simple abscesses will not require a follow up visit. If you had packing placed in the abscess, remove it as instructed by the physician. If you have been referred to a physician for follow-up care, call the physicians office for an appointment as you were instructed or within the next two days. If you experience worsening or a significant change in your symptoms, return to the Emergency Department at any time for re-evaluation. Forms: Elevated Blood Pressure, Smoking Cessation Education Referrals: ALINA GONSALVES MD [Primary Care Provider] - Follow up as needed
[2020-03-06 10:32] VITALS: BP 143/86
== END 2020-03-06 10:32 | disposition home or self-care (01) ==
LOC: ER 08:14
DX: L02.212 Cutaneous abscess of back [any part, except buttock and flank] (principal); Z48.01 Encounter for change or removal of surgical wound dressing; I10 Essential (primary) hypertension; F17.200 Nicotine dependence, unspecified, uncomplicated
CPT/HCPCS: 99282

== ENCOUNTER 2020-08-08 12:37 | Emergency (ER) | payer OTHER ==
[2020-08-08] MEDS ORDERED: IPRATROPIUM/ALBUTEROL 0.5-2.5 MG/3 ML AMPUL NEB ONE ×2 (13:39→14:49)
--- NOTE | 2020-08-08 13:45 | ER Document Report ---
ED Medical Screen (RME) - General Chief Complaint: Shortness Of Breath Stated Complaint: SHORTNESS OF BREATH,WHEEZING Time Seen by Provider: 08/08/20 13:34 Primary Care Provider: ALINA GONSALVES MD [Primary Care Provider] - Follow up as needed - [facility] Notes: 08/08/20 13:47 50-year-old male presents to ED for evaluation of increased shortness of breath. Patient reports orthopnea and increased dyspnea with exertion. States this has been worsening of the last several months. Patient is a pack and 1/2-day smoker. Denies recent cough or cold symptoms. Patient states that he has not had any recent evaluation of this. He has been using [id number] medications for management of asthma. Patient notes he has never been prescribed anything. He endorses no other complaints at this time. Denies lower extremity swelling. - Related Data Allergies/Adverse Reactions: No Known Allergies Allergy (Verified 08/08/20 13:32) Past Medical History - Social History Chew tobacco use (# tins/day): No Frequency of alcohol use: None Drug Abuse: None - Past Medical History Cardiac Medical History: Reports: Hx Hypertension Musculoskeltal Medical History: Reports Hx Musculoskeletal Deformity, Reports Hx Musculoskeletal Trauma Past Surgical History: Reports: Hx Orthopedic Surgery - shoulder & neck fusion - Immunizations Immunizations up to date: Yes Physical Exam - Vital signs Vitals: Temp Pulse Resp BP Pulse Ox 98.3 F 65 20 185/97 H 94 08/08/20 12:40 08/08/20 12:40 08/08/20 12:40 08/08/20 12:40 08/08/20 12:40 General: No acute distress. Alert and oriented x3. Sitting comfortably in a stretcher. Skin: Intact without any jaundice, pallor, or erythema. Warm and dry. HEENT: Normocephalic, atraumatic. Pupils are equal round reactive to light and accommodation. Extraocular movements are intact. TMs without erythema or bulging. Canals are clear. Nares patent without any discharge. Teeth in good condition. Pharynx without erythema, edema, or exudates. No tonsillar enlargement. Uvula is midline. Airway is patent. Neck: Supple with no lymphadenopathy. Full range of motion. Heart: Regular rate and rhythm. S1,S2. No murmurs, rubs, or gallops. Lungs: expiratory wheezing throughout without rhonchi, rales. Equal chest expansion. No retractions. Abdomen: Soft, nontender to palpation, nondistended. Positive bowel sounds in all 4 quadrants. No hepatosplenomegaly. No masses. No CVA tenderness bilaterally. Neuro: GCS 15. Moving all extremities without discomfort. Psych: Mood and affect appropriate. Course - Vital Signs Vital signs: Temp Pulse Resp BP Pulse Ox 98.3 F 65 20 185/97 H 94 08/08/20 12:40 08/08/20 12:40 08/08/20 12:40 08/08/20 12:40 08/08/20 12:40 Doctor's Discharge - Discharge Referrals: ALINA GONSALVES MD [Primary Care Provider] - Follow up as needed
[2020-08-08 14:49] LABS: ABSOLUTE BASOPHILS # (AUTO) 0.1 10^3/uL (0.0-0.2); ABSOLUTE EOSINOPHILS # (AUTO) 0.3 10^3/uL (0.0-0.6); ABSOLUTE LYMPHOCYTES (AUTO) 3.3 10^3/uL (0.5-4.7); ABSOLUTE MONOCYTES (AUTO) 0.8 10^3/uL (0.1-1.4); ABSOLUTE NEUT (AUTO) 3.4 10^3/uL (1.7-8.2); BASOPHILS % (AUTO) 1.9 % (0-2); EOSINOPHILS % (AUTO) 3.5 % (0-6); HEMATOCRIT 41.3 % (37.9-51.0); HEMOGLOBIN 14.1 g/dL (13.5-17.0); MEAN CORPUSCULAR HEMOGLOBIN 31.4 pg (27.0-33.4); MEAN CORPUSCULAR HGB CONC 34.1 g/dL (32.0-36.0); MEAN CORPUSCULAR VOLUME 92 fl (80-97); MONOCYTES % (AUTO) 10.2 % (3-13); PLATELET COUNT 246 10^3/uL (150-450); RED BLOOD COUNT 4.48 10^6/uL (4.35-5.55); RED CELL DISTRIBUTION WIDTH 13.5 % (11.5-14.0); SEGMENTED NEUTROPHILS % (AUTO) 42.4 % (42-78); TOTAL CELLS COUNTED % (AUTO) 100 %; WHITE BLOOD COUNT 7.9 10^3/uL (4.0-10.5)
[2020-08-08] MEDS ORDERED: METHYLPREDNISOLONE INJ 125 MG/2 ML SDV IV ONE (14:49)
--- NOTE | 2020-08-08 14:51 | RADIOLOGY REPORT (SQ) ---
EXAM DESCRIPTION: CHEST SINGLE VIEW IMAGES COMPLETED DATE/TIME: 08/08/2020 2:13 pm REASON FOR STUDY: chest pain COMPARISON: None. EXAM PARAMETERS: NUMBER OF VIEWS: One view. TECHNIQUE: Single frontal radiographic view of the chest acquired. RADIATION DOSE: NA LIMITATIONS: None. FINDINGS: LUNGS AND PLEURA: No opacities, masses or pneumothorax. No pleural effusion. MEDIASTINUM AND HILAR STRUCTURES: No masses. Contour normal. HEART AND VASCULAR STRUCTURES: Heart normal in size. Normal vasculature. BONES: No acute findings. HARDWARE: None in the chest. OTHER: No other significant finding. IMPRESSION: NO ACUTE RADIOGRAPHIC FINDING IN THE CHEST. TECHNICAL DOCUMENTATION: JOB ID: [id number] 2010 [employer]- All Rights Reserved Reading location - IP/workstation name: [email or web address]
[2020-08-08 15:00] LABS: INTERNATIONAL RATION (INR) 0.87
[2020-08-08 15:01] LABS: PARTIAL THROMBOPLASTIN TIME 34.7 SEC (23.5-35.8)
[2020-08-08 15:10] LABS: ALBUMIN 3.8 g/dL (3.5-5.0); ALKALINE PHOSPHATASE 108 U/L (38-126); ASPARTATE AMINO TRANSFERASE 24 U/L (17-59); BILIRUBIN,DIRECT 0.1 mg/dL (0.0-0.4); BILIRUBIN,TOTAL 0.3 mg/dL (0.2-1.3); BLOOD UREA NITROGEN 15 mg/dL (7-20); CHLORIDE 107 mmol/L (98-107); CREATINE KINASE 83 U/L (55-170); GLUCOSE 113 mg/dL (75-110); POTASSIUM 4.5 mmol/L (3.6-5.0); TOTAL PROTEIN 6.8 g/dL (6.3-8.2)
--- NOTE | 2020-08-08 15:14 | ER Document Report ---
ED Respiratory Problem - General Chief Complaint: Shortness Of Breath Stated Complaint: SHORTNESS OF BREATH,WHEEZING Time Seen by Provider: 08/08/20 13:34 Primary Care Provider: ALINA GONSALVES MD [Primary Care Provider] - Follow up as needed Notes: CHIEF COMPLAINT: Shortness of breath for a month HPI: 50-year-old male who smokes 2 packs of cigarettes a day presenting for shortness of breath for a month. Reports wheezing every night. No chest pain. Patient has not seen his primary care provider for evaluation of this issue. States he did try and call yesterday about it but was told that he would need to come to the ER because they are not seeing patients currently. Patient also reports exacerbation of chronic sciatic issues. ROS: See HPI - all other systems were reviewed and are otherwise negative Constitutional: no fever Eyes: no drainage, no blurred vision ENT: no runny nose, no sore throat Cardiovascular: no chest pain Resp: + SOB, + cough GI: no vomiting, no diarrhea, no abdominal pain : no dysuria Integumentary: no rash Allergy: no hives Musculoskeletal: no extremity pain or swelling, positive lower back pain Neurological: no numbness/tingling, no weakness MEDICATIONS: I agree with the patient medications as charted by the RN. ALLERGIES: I agree with the allergies as charted by the RN. PAST MEDICAL HISTORY/PAST SURGICAL HISTORY: Reviewed and agree as charted by RN. SOCIAL HISTORY: Reviewed and agree as charted by RN. FAMILY HISTORY: No significant familial comorbid conditions directly related to patient complaint EXAM: Reviewed vital signs as charted by RN. CONSTITUTIONAL: Alert and oriented and responds appropriately to questions. Well-appearing; well-nourished HEAD: Normocephalic; atraumatic EYES: PERRL; Conjunctivae clear, sclerae non-icteric ENT: normal nose; no rhinorrhea; moist mucous membranes; pharynx without lesions noted, no uvula edema or deviation, no tonsillar hypertrophy, phonation normal NECK: Supple without meningismus; non-tender; no cervical lymphadenopathy, no masses CARD: RRR; no murmurs, no clicks, no rubs, no gallops; symmetric distal pulses RESP: Normal chest excursion without splinting or tachypnea; breath sounds with expiratory wheezing in all lung danielle on expiration after breathing treatment, no rhonchi, no rales, pulse oximetry 96% on room air not hypoxic. Mildly dyspneic with speaking ABD/GI: Morbidly obese, normal bowel sounds; non-distended; soft, non-tender, no rebound, no guarding; no palpable organomegaly or masses. BACK: The back appears normal and is non-tender to palpation, there is no CVA tenderness EXT: Normal ROM in all joints; non-tender to palpation; no cyanosis, no effusions, no edema SKIN: Normal color for age and race; warm; dry; good turgor; no acute lesions noted NEURO: Moves all extremities equally; Motor and sensory function intact PSYCH: The patient's mood and manner are appropriate. Grooming and personal hygiene are appropriate. MDM: 50-year-old male presenting with shortness of breath for a month. He is an avid smoker. Likely emphysema or COPD exacerbation. Still wheezing after one breathing treatment given continuous neb, steroids and reassess. Initial screening cardiac labs placed by triage process. He has no active chest pain. Patient also complaining with his chronic issues with sciatic and back pain. He is on oxycodone 15 mg 4 times daily. He will need to obtain further pain management relief from PCP or pain management physicians as we do not manage chronic pain issues. The patient was evaluated during the global COVID-19 pandemic and that diagnosis was suspected/considered upon their initial presentation. Their evaluation, treatment and testing was consistent with current guidelines for patients who present with complaints or symptoms that may be related to COVID-19 - Related Data Allergies/Adverse Reactions: No Known Allergies Allergy (Verified 08/08/20 13:32) Past Medical History - Social History Smoking Status: Current Every Day Smoker Chew tobacco use (# tins/day): No Frequency of alcohol use: None Drug Abuse: None Family History: None Patient has homicidal ideation: No - Past Medical History Cardiac Medical History: Reports: Hx Hypertension Musculoskeletal Medical History: Reports Hx Musculoskeletal Deformity, Reports Hx Musculoskeletal Trauma Past Surgical History: Reports: Hx Orthopedic Surgery - shoulder & neck fusion/right shoulder/wrist, Hx Tonsillectomy - Immunizations Immunizations up to date: Yes Physical Exam - Vital signs Vitals: Temp Pulse Resp BP Pulse Ox 98.3 F 65 20 185/97 H 94 08/08/20 12:40 08/08/20 12:40 08/08/20 12:40 08/08/20 12:40 08/08/20 12:40 Course - Re-evaluation Re-evalutation: 08/08/20 16:01 Still with very slight wheezing. His pulse oximetry is 99% on room air dropped down to approximately 92 to 94% on ambulation to and from the bathroom. Patient's chest x-ray did not show acute findings. His screening labs do not show acute findings. Will give magnesium to see if we can open patient up further. Patient is requesting pain medication for chronic sciatic issues. Patient is aware that he must follow-up with his PCP for chronic pain management we will give him a dose of morphine here for acute pain management 08/08/20 17:12 Patient is maintaining pulse oximetry 95 to 96% on room air with good waveform on the monitor. Very slight expiratory wheezing the patient feels much better subjectively. He likely has a COPD exacerbation. He has continued to smoke despite his illness. Recommended patient stop smoking. Anticipate discharge home on steroids, albuterol inhaler I will provide one for him given the holiday schedule. Will give patient a one-time dose of pain medication here for his chronic pain issues but he is aware he must contact his pain management physicians tomorrow about his medications 08/08/20 17:14 Patient is not concerned about Covid and declines testing 08/08/20 17:19 EKG normal sinus rhythm with a ventricular rate of 59 IN 144 QT 416 QTc 413 normal EKG no other ectopy, interpreted by emergency department physician - Vital Signs Vital signs: Temp Pulse Resp BP Pulse Ox 98.3 F 65 21 H 160/81 H 94 08/08/20 12:40 08/08/20 12:40 08/08/20 16:01 08/08/20 16:01 08/08/20 16:01 - Laboratory Results Result Diagrams: 08/08/20 14:15 08/08/20 14:15 Laboratory Results Interpreted: 08/08/20 08/08/20 14:15 14:15 Anion Gap 4 L Glucose 113 H NT-Pro-B Natriuret Pep 307 H Critical Laboratory Results Reviewed: No Critical Results - Radiology Results Critical Radiology Results Reviewed: No Critical Results Discharge - Discharge Clinical Impression: COPD exacerbation, Tobacco abuse Chronic back pain Qualifiers: Back pain location: low back pain Back pain laterality: unspecified Sciatica presence: with sciatica Sciatica laterality: sciatica laterality unspecified Qualified Code(s): M54.40 - Lumbago with sciatica, unspecified side; G89.29 - Other chronic pain Condition: Stable Disposition: HOME, SELF-CARE Additional Instructions: Continue to use the albuterol inhaler 2 puffs every 4 hours as needed for shortness of breath. Take the steroids as prescribed. Follow-up with your primary care provider for further evaluation of your breathing difficulties. Stop smoking. Return to the emergency department for worsened shortness of breath Prescriptions: Prednisone [Deltasone 20 mg Tablet] 2 tab PO DAILY 5 Days #10 tablet Albuterol Sulfate [Proair HFA Inhalation Aerosol 8.5 gm MDI] 2 puff IH Q4H PRN #1 mdi PRN Reason: Referrals: ALINA GONSALVES MD [Primary Care Provider] - Follow up as needed
[2020-08-08 15:15] LABS: CARBON DIOXIDE 27 mmol/L (22-30)
[2020-08-08 15:20] LABS: ANION GAP 4 (5-19)
[2020-08-08 15:22] LABS: NT PRO BNP 307 pg/mL (<125)
[2020-08-08 15:43] LABS: TROPONIN I < 0.012 ng/mL
[2020-08-08] MEDS ORDERED: MORPHINE SULFATE 10 MG/ML INJ IV ONE (16:01)
[2020-08-08] MEDS: MAGNESIUM SULFATE/D5W 1 GM/100 ML RTUPB IV SCH ×2 (16:09→16:30)
--- NOTE | 2020-08-08 16:09 | EKG REPORT ---
SEVERITY:- NORMAL ECG - SINUS RHYTHM : Confirmed by: Sonido Lincoln MD 08-Aug-2020 16:08:45
[2020-08-08] MEDS ORDERED: ALBUTEROL SULFATE HFA (90 MCG/PUFF) 8 GM MDI (1 MDI/ER DISP) IH PRN (16:33)
[2020-08-08] MEDS ORDERED: HYDROMORPHONE HCL INJ/PF 2 MG/ML AMPULE IV ONE (17:15)
[2020-08-08 18:00] VITALS: BP 159/98
== END 2020-08-08 18:06 | disposition home or self-care (01) ==
LOC: ER 12:37
DX: J44.1 Chronic obstructive pulmonary disease with (acute) exacerbation (principal); F17.210 Nicotine dependence, cigarettes, uncomplicated; G89.29 Other chronic pain; M54.40 Lumbago with sciatica, unspecified side; Z79.891 Long term (current) use of opiate analgesic; Z20.828 Contact with and (suspected) exposure to other viral communicable diseases; I10 Essential (primary) hypertension
CPT/HCPCS: 93005; 94640 ×2; 99285; 96375; 96365; 36415; 82553; 82550; 83735; 85025; 85610; 85730; 80053; 84484; 83880; 71045; 93010; J2930; J2270; J1170; J3475; J3490